=== PATIENT | female | born 1970 | race African-American/Black ===

== ENCOUNTER 2022-03-29 21:06 | Emergency (ER) | payer OTHER ==
[~2022-03-29] VITALS: Ht 149.9 cm; Wt 63.0 kg
[~2022-03-29 21:06] MED LIST: ACET-689 PO; ACET7.5T70 PO; ALPR0.5T24 PO; EC-NAPROSYN500 MG PO; IBUPROFEN IB200 MG OR; PAROXETINE10 MG PO; PROM25TA52 PO
[2022-03-30 00:34] VITALS: BP 114/78; TEMP 97.5
== END 2022-03-30 01:00 | disposition home or self-care (01) ==
LOC: ED 21:06
DX: M54.59 Other low back pain (principal)
CPT/HCPCS: 96372; 99282; J1885